=== PATIENT | male | born 1960 | race Caucasian/White ===

== ENCOUNTER 2019-10-11 05:32 | Emergency (ER) | payer MEDICARE ==
[2019-10-11] MEDS ORDERED: Ondansetron INJ* 2 MG/ML VIAL IV ONE (06:05)
[2019-10-11] MEDS ORDERED: Morphine 4 MG/ML VIAL (1 ml) 4 MG/ML VIAL IV ONE (06:05)
--- NOTE | 2019-10-11 06:05 | ED ---
Abdominal Pain/Male - HPI Summary HPI Summary: Patient is a 59-year-old male with significant past medical history of Chiari malformation, past myocardial infarction and dhib-ndhl-[id number] smoking history who presents to the emergency department today with chief complaint of abdominal pain 4 days. He does not recall any provoking situation but states it is then a 10 out of 10 stabbing pain which radiates occasionally to his back in his epigastrium since began and has remained the same in severity since its onset. He states laying flat makes the pain worse and ibuprofen makes the pain better. She's tried [id number] antacids with no relief. He denies personal history of pancreatitis, gallstones, kidney stones, polycystic kidney disease, hypertension, Kawasaki's disease. He endorses nausea and vomiting with his symptoms since onset. He admits to chronic back pain as well as headaches which she attributes to his care and observation. He denies blood per rectum or changes in stool. He denies recreational drug use or alcohol use. He denies fever, syncope, headache, shortness of breath, chest pain, rash. He does not take any medication regularly. - History of Current Complaint Chief Complaint: EDAbdPain Stated Complaint: ABD PAIN PER PT Time Seen by Provider: 10/11/19 05:54 Hx Obtained From: Patient Onset/Duration: Gradual Onset, Other - Pain lasting months which is acutely gotten worse the last 2 days. Timing: Constant Severity Initially: Mild Severity Currently: Severe Pain Intensity: 10 Pain Scale Used: 0-10 Numeric Location: Epigastric Radiates: No Character: Burning, Other: - Pressure Aggravating Factor(s): Other: - Laying flat Alleviating Factor(s): Position - Standing up, Antacids Associated Signs And Symptoms: Positive: Chest Pain, Back Pain, Nausea. Negative: Diaphoresis, Fever, Cough, Blood in Stool, Vomiting, Diarrhea - Allergies/Home Medications Allergies/Adverse Reactions: Allergies Allergy/AdvReac Type Severity Reaction Status Date / Time cephalexin [From Keflex] Allergy Unknown Verified 10/11/19 05:42 Reaction Details clopidogrel [From Plavix] Allergy Unknown Verified 10/11/19 05:42 Reaction Details nitroglycerin Allergy Unknown Verified 10/11/19 05:42 Reaction Details "many medications-unk" Allergy Unknown Uncoded 10/11/19 05:42 Reaction Details Home Medications: Home Medications Ibuprofen TAB* [Motrin TAB* 400 MG] 400 mg PO Q6H PRN 10/11/19 [History Confirmed 10/11/19] PMH/Surg Hx/FS Hx/Imm Hx Infectious Disease History: No Infectious Disease History: Denies: Traveled Outside the [place] in Last 30 Days Review of Systems Constitutional: Negative Positive: Chest Pain Respiratory: Negative Negative: Cough Positive: Abdominal Pain, Nausea. Negative: Vomiting, Diarrhea Negative: incontinence Skin: Negative Neurological: Negative Psychological: Normal All Other Systems Reviewed And Are Negative: Yes Physical Exam Triage Information Reviewed: Yes Vital Signs On Initial Exam: Initial Vitals Temp Pulse Resp BP Pulse Ox 98.2 F 111 18 128/84 99 10/11/19 05:35 10/11/19 05:35 10/11/19 05:35 10/11/19 05:35 10/11/19 05:35 Vital Signs Reviewed: Yes Appearance: Positive: Well-Appearing, No Pain Distress, Well-Nourished Skin: Positive: Warm, Skin Color Reflects Adequate Perfusion Head/Face: Positive: Normal Head/Face Inspection Eyes: Positive: Normal, EOMI ENT: Positive: Hearing grossly normal Respiratory/Lung Sounds: Positive: Clear to Auscultation, Breath Sounds Present Cardiovascular: Positive: Normal, RRR, S1, S2 Abdomen Description: Positive: Nontender Bowel Sounds: Positive: Present, Other - No evidence of ecchymosis or rash. No sign of organomegaly or masses. Bowel sounds are normoactive. No hyperresonance with percussion. No signs of ascites. 8 out of 10 pain with palpation to the upper abdomen. No pain to palpation of the lower abdomen. No suprapubic pain. No bruits were appreciated when listening at the epigastrium. No pulsatile mass was felt in the abdomen. Negative Coleman's sign, psoas, obturator, Rovsing, tenderness at McBurney's point. No guarding or rigidity was noted during examination. Neurological: Positive: Alert, Oriented to Person Place, Time Psychiatric: Positive: Normal AVPU Assessment: Alert Procedures - Sedation Patient Received Moderate/Deep Sedation with Procedure: No Diagnostics - Vital Signs Vital Signs Temp Pulse Resp BP Pulse Ox 10/11/19 05:35 98.2 F 111 18 128/84 99 - Laboratory Result Diagrams: 10/11/19 06:14 10/11/19 06:14 Lab Statement: Any lab studies that have been ordered have been reviewed, and results considered in the medical decision making process. Re-Evaluation - Re-Evaluation First Eval Re-Evaluation Time: 07:20 Change: Improved - Patient's tachycardia has improved to a rate of 98 bpm after being given morphine and Zofran. He states his pain is much improved however still has mild pain when he lays flat. Abdominal Pain Male Course/Dx - Course Course Of Treatment: Patient was evaluated in the emergency department for chest pain. The patient was seen and evaluated. An EKG was ordered as well as laboratory studies. Based on physical exam is determined imaging was not required. EKG showed sinus tachycardia at a rate of 143 minute. No evidence of ST elevation or current ischemia. Normal AK and QTc interval. Left axis deviation with possible right atrial enlargement. Laboratory results returned showing no leukocytosis,normal H&H,normal bilirubin, no elevation in amylase or lipase, negative troponin with a value of 0.01. Laboratory results show no evidence of acute cardiac insult, biliary pathology, or pancreatitis. Patients pain was significantly reduced after being given for of Zofran and 4 mg morphine but still complained of increased pain while supine. He was then given 15 mL of 2% viscous lidocaine to swallow, famotidine IV 40 mg and Maalox +30 mL by mouth. He endorses further pain relief after being given this medication. His vitals improved and were stable and his pain also improved he was discharged to home and told to take Maalox plus and omeprazole over-the- counter. 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 He was educated as to lifestyle management to improve his symptoms including diet and positioning while sleeping. He agrees with this plan although states he "will not stop taking Motrin for his headaches" and he "does not know if hell stop drinking caffeine ". He was informed of the consequences of untreated indigestion. - Diagnoses Differential Diagnosis/HQI/PQRI: Appendicitis, Bowel Obstruction, Constipation, Diverticulitis, Gall Bladder Disease, Ischemic Bowel, Peptic Ulcer Disease, Renal Colic, Other - Peptic ulcer disease Provider Diagnoses: Abdominal pain Discharge ED - Sign-Out/Discharge Documenting (check all that apply): Patient Departure - Discharge Plan Condition: Improved Disposition: HOME Patient Education Materials: Diet for Stomach Ulcers and Gastritis (ED), Indigestion (ED) Referrals: [facility] [Outside] - 2 Days Keith Gray MD [Medical Doctor] - 2 Days No Primary Care Phys,NOPCP [Primary Care Provider] - Additional Instructions: You were seen in the emergency department today for chest pain. An EKG and laboratory studies showed that there was no acute cardiopulmonary pathology including heart attack. It is likely that your chest pain is due to peptic ulcer disease or indigestion. Please take Maalox plus 30ml every 4 hours as needed and Omeprazole 40mg once daily for alleviation of symptoms. These medications can be found [id number] and are affordable. I will give you information for one of our [facility] physicians for further management of your problems or gastroenterology. It is very important for you to have this treated as long-term indigestion can lead to things such as gastric ulcers. Please return to the emergency department if you develops any new or worsening symptoms. - Billing Disposition and Condition Condition: IMPROVED Disposition: Home - Attestation Statements Provider Attestation: I was available for consult. This patient was seen by the MADELAINE. The patient was not presented to, seen by, or examined by me. -
[2019-10-11 06:27] LABS: ABS Basophils 0.1 10^3/ul (0-0.2); ABS Eosinophils 0.3 10^3/ul (0-0.6); ABS Monocytes 0.6 10^3/ul (0-0.8); ABS Neutrophils 5.7 10^3/ul (1.5-7.7); Eosinophil % 3.3 %; Hematocrit 44 % (42-52); Hemoglobin 15.2 g/dL (14.0-18.0); Lymphocyte % 23.3 %; Mean Corpuscular HGB Conc 35 g/dL (31-36); Mean Corpuscular Hemoglobin 33 pg (27-31); Mean Corpuscular Volume 96 fL (80-94); Platelet Count 270 10^3/uL (150-450); Red Blood Count 4.55 10^6 /uL (4.18-5.48); Red Cell Distribution Width 12 % (10-15); White Blood Count 8.7 10^3/uL (3.5-10.8)
[2019-10-11 06:45] LABS: ALT 18 U/L (7-52); AST 20 U/L (13-39); Albumin 4.7 g/dL (3.2-5.2); Albumin/Globulin Ratio 1.7 (1-3); Alkaline Phosphatase 107 U/L (34-104); Amylase 31 U/L (29-103); Anion Gap 7 mmol/L (2-11); BUN/Creatinine Ratio 14.8 (8-20); Blood Urea Nitrogen 12 mg/dL (6-24); C Reactive Protein 2.76 mg/L (<8.01); CO2 Carbon Dioxide 26 mmol/L (22-32); Calcium 9.9 mg/dL (8.6-10.3); Chloride 105 mmol/L (101-111); EGFR African American 118.8 (>60); EGFR Non-African American 98.2 (>60); Globulin 2.8 g/dL (2-4); Glucose 112 mg/dL (70-100); Magnesium 2.2 mg/dL (1.9-2.7); Potassium 3.8 mmol/L (3.5-5.0); Sodium 138 mmol/L (135-145); Total Protein 7.5 g/dL (6.4-8.9)
[2019-10-11 06:46] LABS: Troponin I 0.01 ng/mL (<0.04)
[2019-10-11] MEDS ORDERED: Lactated Ringers 1000 ML Bag* 1,000 ML IV ONE (07:00)
[2019-10-11] MEDS ORDERED: Famotidine IV* 10 MG/ML 2 ML (20 mg) IV SLOW PU ONE (07:24)
[2019-10-11] MEDS ORDERED: Lidocaine 2% VISCOUS* 15 ML UDC PO ONE (07:24)
[2019-10-11] MEDS ORDERED: Al Hydrox/Mg Hydrox/Simet LIQ* 30 ML UDC PO ONE (07:25)
[2019-10-11 09:48] VITALS: BP 130/87
== END 2019-10-11 09:45 | disposition home or self-care (01) ==
LOC: ED 05:32
DX: R10.13 Epigastric pain (principal); R11.2 Nausea with vomiting, unspecified; Z88.1 Allergy status to other antibiotic agents; Z88.8 Allergy status to other drugs, medicaments and biological substances; R00.0 Tachycardia, unspecified
CPT/HCPCS: 36415; 80053; 82150; 83605; 83690; 83735; 84484; 85025; 86140; 93005; 96361; 96374; 96375; 99283; A9270-GY; J2270; J2405

== ENCOUNTER 2020-01-18 14:25 | Emergency (ER) | payer MEDICARE ==
--- NOTE | 2020-01-18 15:02 | ED ---
Complex/Multi-Sys Presentation - HPI Summary HPI Summary: Patient is a 59 y/o M presenting to [facility] with complaints of RUQ pain and right shoulder pain. He states that he was evaluated in mid-September of 2019 for similar Sx. Patient's Sx were improved with medications, he was discharged to home. Patient states that he has been experiencing pain at his RUQ and upper back intermittently since this time. However, for the past week, he states that he has been having pain at his right shoulder and RUQ. He also notes nausea, slight constipation, cough and one episode of chills but denies fever, diarrhea , hematuria, dysuria, SOB, and CP. He notes that he experiences episodes of pain towards the evening. Patient notes that he has been eating one meal daily towards the afternoon/evening for the majority of his life. Bending over is noted to aggravate his pain as well. PMHx of chiari malformation and ND noted. Patient takes Excedrin for his chiari-related HAs. Allergy to plavix is noted. He states that he is a current cigarette smoker but denies alcohol consumption. Home medications and allergies are reviewed. Home Medications Medication Instructions Recorded Confirmed Type Ibuprofen TAB* [Motrin TAB* 400 MG] 400 mg PO Q6H PRN 10/11/19 10/11/19 History - History Of Current Complaint Chief Complaint: EDAbdPain Time Seen by Provider: 01/18/20 14:52 Hx Obtained From: Patient Onset/Duration: Still Present Timing: Intermittent, Lasting: Location: Pain At: - RUQ, right shoulder Aggravating Factor(s): bending over, episodes occur towards night Associated Signs And Symptoms: Positive: Cough, Nausea, Abdominal Pain, Other - positive - constipation, chills; negative - hematuria. Negative: SOB, Chest Pain, Diarrhea, Dysuria, Fever - Allergies/Home Medications Allergies/Adverse Reactions: Allergies Allergy/AdvReac Type Severity Reaction Status Date / Time cephalexin [From Keflex] Allergy Unknown Verified 01/18/20 14:31 Reaction Details clopidogrel [From Plavix] Allergy Unknown Verified 01/18/20 14:31 Reaction Details nitroglycerin Allergy Unknown Verified 01/18/20 14:31 Reaction Details "many medications-unk" Allergy Unknown Uncoded 01/18/20 14:31 Reaction Details Home Medications: Home Medications Ibuprofen TAB* [Motrin TAB* 400 MG] 400 mg PO Q6H PRN 10/11/19 [History Confirmed 01/18/20] traMADol TAB* [Ultram*] 50 mg PO Q12H PRN #20 tab MDD 2 tablets 01/18/20 [Rx] PMH/Surg Hx/FS Hx/Imm Hx Cardiovascular History: Reports: Hx Myocardial Infarction Neurological History: Reports: Other Neuro Impairments/Disorders - chiari malformation Infectious Disease History: No Infectious Disease History: Denies: Traveled Outside the [place] in Last 30 Days - Family History Known Family History: Positive: Other - no FMHx of GI issues - Social History Alcohol Use: None Substance Use Type: Reports: None Smoking Status (MU): Heavy Every Day Tobacco Smoker Review of Systems Negative: Fever, Chills Negative: Chest Pain Positive: Cough. Negative: Shortness Of Breath Gastrointestinal: Other - positive - slight constipation Positive: Abdominal Pain - RUQ, Nausea. Negative: Vomiting, Diarrhea Negative: dysuria, hematuria All Other Systems Reviewed And Are Negative: Yes Physical Exam - Summary Physical Exam Summary: Constitutional: Well-developed, Well-nourished, Alert. (-) Distressed Skin: Warm, Dry HENT: Normocephalic; Atraumatic Eyes: Conjunctiva normal Neck: Musculoskeletal ROM normal neck. (-) JVD, (-) Stridor, (-) Tracheal deviation Cardio: Rhythm regular, rate normal, Heart sounds normal; Intact distal pulses; Radial pulses are 2+ and symmetric. (-) Murmur Pulmonary/Chest wall: Effort normal. (-) Respiratory distress, (-) Wheezes, (-) Rales Abd: Soft, RUQ Tenderness and Positive McBurney's Point, (-) Distension, (-) Guarding, (-) Rebound Musculoskeletal: (-) Edema Lymph: (-) Cervical adenopathy Neuro: Alert, Oriented x3 Psych: Mood and affect Normal Triage Information Reviewed: Yes Vital Signs On Initial Exam: Initial Vitals Temp Pulse Resp BP Pulse Ox 98.0 F 110 18 142/93 97 01/18/20 14:27 01/18/20 14:27 01/18/20 14:27 01/18/20 14:27 01/18/20 14:27 Vital Signs Reviewed: Yes Procedures - Sedation Patient Received Moderate/Deep Sedation with Procedure: No Diagnostics - Vital Signs Vital Signs Temp Pulse Resp BP Pulse Ox 01/18/20 14:27 98.0 F 110 18 142/93 97 - Laboratory Result Diagrams: 01/18/20 14:59 01/18/20 14:59 Lab Statement: Any lab studies that have been ordered have been reviewed, and results considered in the medical decision making process. - CT CT ABD/PEL CT Interpretation Completed By: Radiologist Summary of CT Findings: IMPRESSION: Left lobe hepatic mass with left sided intrahepatic duct dilatation suspicious. for cholangiocarcinoma. The left portal vein is obscured. The right portal vein is patent. There may be a low density lesion in the caudate lobe as well. 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 THIS REPORT WAS REVIEWED BY ED PHYSICIAN. - Ultrasound GALLBLADDER US Ultrasound Interpretation Completed By: Radiologist Summary of Ultrasound Findings: IMPRESSION: 1. LIMITED STUDY. 2. FATTY INFILTRATION OF THE LIVER. 3. INTRAHEPATIC BILIARY DILATATION INVOLVING THE LEFT LOBE OF LIVER, CONCERNING FOR A. PROXIMAL OBSTRUCTING LESION. THIS REPORT WAS REVIEWED BY ED PHYSICIAN. Re-Evaluation - Re-Evaluation First Eval Re-Evaluation Time: 17:24 Comment: Patient informed of cancer diagnosis. Patient's initial thoughts are that he does not want to have treatment, but he is agreeable with consulting an oncologist. Complex Multi-Symp Course/Dx Course Of Treatment: Patient is here with right upper quadrant pain since September. Patient had blood work performed which showed elevated alkaline phosphatase. Patient had an ultrasound which showed intrahepatic biliary duct dilatation in the left lobe of the liver. Due to patient's dilatation, a CT scan was ordered which showed a likely cholangiocarcinoma. Uncalled he was called and will follow with patient has an outpatient. Patient is discharged with tramadol for pain. - Diagnoses Provider Diagnoses: Cholangiocarcinoma, RUQ pain - Physician Notifications Discussed Care Of Patient With: Pepe Webb Time Discussed With Above Provider: 17:25 Instructed by Provider To: Other - Patient's case was discussed with Dr. Webb, he advises discharge to home and outpatient followup with his office tomorrow. Discharge ED - Sign-Out/Discharge Documenting (check all that apply): Patient Departure - discharge - Discharge Plan Condition: Stable Disposition: HOME Prescriptions: traMADol TAB* [Ultram*] 50 mg PO Q12H PRN #20 tab MDD 2 tablets PRN Reason: Pain - Severe Patient Education Materials: Liver Cancer (DC), Abdominal Pain (ED) Referrals: Pepe Webb MD [Medical Doctor] - [facility] [Outside] Additional Instructions: CALL THE OFFICE OF DR. WEBB, ONCOLOGY, TOMORROW TO BECOME ESTABLISHED WITH HIM. THEY ARE AWARE OF YOU A PATIENT. TAKE YOUR PRESCRIBED PAIN MEDICATIONS NEEDED. PLEASE RETURN TO ED FOR HIGH FEVERS, SEVERE ABDOMINAL PAIN, IF YOUR SKIN TURNS YELLOW, OR ANY OTHER CONCERNING SYMPTOMS. - Billing Disposition and Condition Condition: STABLE Disposition: Home - Attestation Statements Document Initiated by Pratik: Yes Documenting Scribe: STEFANO ZEPEDA Provider For Whom Pratik is Documenting (Include Credential): DANIEL SANTIAGO MD Scribe Attestation: I, STEFANO ZEPEDA, scribed for DANIEL SANTIAGO MD on 01/18/20 at 1814. Scribe Documentation Reviewed: Yes Provider Attestation: The documentation as recorded by the STEFANO mac accurately reflects the service I personally performed and the decisions made by me, DANIEL SANTIAGO MD Status of Scribe Document: Viewed
[2020-01-18] MEDS ORDERED: Dicyclomine CAP* 10 MG PO ONE (15:05)
[2020-01-18 15:07] LABS: ABS Basophils 0.1 10^3/ul (0-0.2); ABS Eosinophils 0.4 10^3/ul (0-0.6); ABS Monocytes 0.5 10^3/ul (0-0.8); ABS Neutrophils 5.3 10^3/ul (1.5-7.7); Eosinophil % 4.7 %; Hematocrit 42 % (42-52); Hemoglobin 14.5 g/dL (14.0-18.0); Lymphocyte % 24.1 %; Mean Corpuscular HGB Conc 35 g/dL (31-36); Mean Corpuscular Hemoglobin 33 pg (27-31); Mean Corpuscular Volume 96 fL (80-94); Mean Platelet Volume 7.9 fL (7.4-10.4); Platelet Count 290 10^3/uL (150-450); Red Blood Count 4.37 10^6 /uL (4.18-5.48); Red Cell Distribution Width 13 % (10-15); White Blood Count 8.2 10^3/uL (3.5-10.8)
[2020-01-18 15:27] LABS: ALT 18 U/L (7-52); AST 21 U/L (13-39); Albumin 4.4 g/dL (3.2-5.2); Albumin/Globulin Ratio 1.4 (1-3); Alkaline Phosphatase 186 U/L (34-104); Anion Gap 7 mmol/L (2-11); BUN/Creatinine Ratio 13.7 (8-20); Blood Urea Nitrogen 10 mg/dL (6-24); CO2 Carbon Dioxide 26 mmol/L (22-32); Calcium 9.4 mg/dL (8.6-10.3); Chloride 104 mmol/L (101-111); EGFR Non-African American 110.7 (>60); Globulin 3.1 g/dL (2-4); Glucose 91 mg/dL (70-100); Potassium 3.9 mmol/L (3.5-5.0); Sodium 137 mmol/L (135-145); Total Protein 7.5 g/dL (6.4-8.9)
[2020-01-18] MEDS ORDERED: Iohexol 300* (CONTRAST) 10 ML SDV IV ONE (16:23)
[2020-01-18 17:55] VITALS: BP 132/85
== END 2020-01-18 17:53 | disposition home or self-care (01) ==
LOC: ED 14:25
DX: C22.1 Intrahepatic bile duct carcinoma (principal); R10.11 Right upper quadrant pain; K76.0 Fatty (change of) liver, not elsewhere classified; M54.6 Pain in thoracic spine; M25.511 Pain in right shoulder; R11.0 Nausea; K59.00 Constipation, unspecified; R05 Cough; I25.2 Old myocardial infarction; G93.5 Compression of brain; Z88.1 Allergy status to other antibiotic agents; Z88.8 Allergy status to other drugs, medicaments and biological substances; F17.200 Nicotine dependence, unspecified, uncomplicated
CPT/HCPCS: 36415; 74177; 76705; 80053; 83690; 85025; 99283; A9270-GY; Q9967